=== PATIENT | female | born 1995 | race African-American/Black ===

== ENCOUNTER 2016-06-19 11:28 | Emergency (ER) | payer OTHER ==
[~2016-06-19] VITALS: Ht 172.7 cm; Wt 128.9 kg
[2016-06-19] MEDS ORDERED: METHOCARBAMOL 750 MG TABLET PO ONE (12:30)
[2016-06-19] MEDS ORDERED: OXYcodone/APAP 5/325MG TABLET PO ONE (12:30)
[2016-06-19] MEDS ORDERED: OXYcodone/APAP 5/325MG TABLET ONE ×2 (14:01→14:09)
[2016-06-19] MEDS ORDERED: METHOCARBAMOL 750 MG TABLET ONE (14:01)
[2016-06-19 14:30] VITALS: BP 145/78
== END 2016-06-19 14:32 | disposition home or self-care (01) ==
LOC: ED 11:54
DX: M54.42 Lumbago with sciatica, left side (principal)
CPT/HCPCS: 93971; 99284; J7512

== ENCOUNTER 2016-07-28 00:58 | Emergency (ER) | payer MEDICAID ==
[~2016-07-28] VITALS: Ht 172.7 cm; Wt 130.6 kg
[2016-07-28 01:02] VITALS: BP 138/83
[2016-07-28] MEDS ORDERED: KETOROLAC 30 MG/1 ML IM ONE (01:30)
[2016-07-28 01:42] LABS: BLOOD UREA NITROGEN 13 mg/dL (7-18)
[2016-07-28] MEDS ORDERED: KETOROLAC 30 MG/1 ML ONE (01:59)
[2016-07-28] MEDS ORDERED: METHOCARBAMOL 750 MG TABLET PO ONE (02:30)
[2016-07-28] MEDS ORDERED: METHOCARBAMOL 750 MG TABLET ONE ×2 (02:40→02:41)
== END 2016-07-28 02:54 | disposition home or self-care (01) ==
LOC: ED 01:18
DX: M54.42 Lumbago with sciatica, left side (principal)
CPT/HCPCS: 36415; 72110; 80048; 82040; 85025

== ENCOUNTER 2016-09-27 11:24 | Emergency (ER) | payer MEDICAID ==
[~2016-09-27] VITALS: Ht 172.7 cm; Wt 126.1 kg
[2016-09-27 12:27] LABS: ASPARTATE AMINO TRANSFERASE 17 U/L (15-37); BLOOD UREA NITROGEN 7 mg/dL (7-18)
[2016-09-27 13:04] VITALS: BP 107/65
== END 2016-09-27 13:40 | disposition home or self-care (01) ==
LOC: ED 11:47
DX: N83.202 Unspecified ovarian cyst, left side (principal)
CPT/HCPCS: 36415; 76830; 80053; 81003; 84702; 85025; 99285

== ENCOUNTER 2016-11-02 16:06 | Emergency (ER) | payer MEDICAID ==
[~2016-11-02] VITALS: Ht 172.7 cm; Wt 119.7 kg
[2016-11-02 16:07] VITALS: BP 129/85
[2016-11-02] MEDS ORDERED: ONDANSETRON 2MG/ML, 2ML IVPush ONE (17:00)
[2016-11-02] MEDS ORDERED: SODIUM CHLORIDE FLUSH 10ML SYR IVF ONE (17:00)
[2016-11-02] MEDS ORDERED: SODIUM CHLORIDE 0.9% 1,000ML IVBOLUS ONE (17:00)
[2016-11-02 17:17] LABS: PATH.CAST-FLAG NOT PRESENT; SPERM-FLAG NOT PRESENT; SRC-FLAG NOT PRESENT; XTAL-FLAG NOT PRESENT; YLC-FLAG NOT PRESENT
[2016-11-02 17:20] LABS: BLOOD UREA NITROGEN 14 mg/dL (7-18)
[2016-11-02 17:25] LABS: HEMATOCRIT 40.4 % (34.6-47.8); HEMOGLOBIN 13.5 g/dL (11.7-16.4); WHITE BLOOD COUNT 7.4 x10^3/uL (3.4-10)
== END 2016-11-02 18:56 | disposition left against medical advice (07) ==
LOC: ED 17:06
DX: N83.202 Unspecified ovarian cyst, left side (principal); G89.29 Other chronic pain; M54.5 Low back pain
CPT/HCPCS: 36415; 76830; 80048; 81001; 82040; 84703; 85025; 93005; 99285

== ENCOUNTER 2016-11-07 10:52 | Emergency (ER) | payer MEDICAID ==
[~2016-11-07] VITALS: Ht 172.7 cm; Wt 122.7 kg
[2016-11-07 11:08] VITALS: BP 136/88
== END 2016-11-07 12:37 | disposition home or self-care (01) ==
LOC: ED 12:10
DX: M26.621 Arthralgia of right temporomandibular joint (principal); K01.1 Impacted teeth
CPT/HCPCS: 70100; 99284

== ENCOUNTER 2016-11-20 09:29 | Emergency (ER) | payer MEDICAID ==
[~2016-11-20] VITALS: Ht 172.7 cm; Wt 121.7 kg
[2016-11-20 10:25] VITALS: BP 119/74
[2016-11-20] MEDS ORDERED: CEFTRIAXONE 250 MG IM ONE (11:30)
== END 2016-11-20 12:07 | disposition home or self-care (01) ==
LOC: ED 11:30
DX: Z20.2 Contact with and (suspected) exposure to infections with a predominantly sexual mode of transmission (principal); N89.8 Other specified noninflammatory disorders of vagina; Z88.1 Allergy status to other antibiotic agents
CPT/HCPCS: 87210; 87491; 87591; 87808; 99284

== ENCOUNTER 2016-12-26 09:51 | Emergency (ER) | payer MEDICAID ==
[~2016-12-26] VITALS: Ht 172.7 cm; Wt 120.7 kg
[2016-12-26 11:30] LABS: ASPARTATE AMINO TRANSFERASE 9 U/L (15-37); BLOOD UREA NITROGEN 5 mg/dL (7-18)
[2016-12-26 11:40] LABS: HEMATOCRIT 37.5 % (34.6-47.8); WHITE BLOOD COUNT 7.1 x10^3/uL (3.4-10)
[2016-12-26 13:33] VITALS: BP 115/64
== END 2016-12-26 13:35 | disposition home or self-care (01) ==
LOC: ED 10:23
DX: O26.891 Other specified pregnancy related conditions, first trimester (principal); O46.91 Antepartum hemorrhage, unspecified, first trimester; Z3A.01 Less than 8 weeks gestation of pregnancy
CPT/HCPCS: 36415; 76801; 80053; 81001; 84702; 85025; 87086; 87210; 87491; 87591; 87808; 99285

== ENCOUNTER 2017-03-13 03:18 | Emergency (ER) | payer MEDICAID ==
[~2017-03-13] VITALS: Ht 172.7 cm; Wt 117.4 kg
[2017-03-13 04:26] LABS: HCG UR SG 1.035 (1.003-1.030); MICROSCOPIC NOT IND
[2017-03-13 04:27] LABS: CULTURE INDICATED? NO
[2017-03-13] MEDS ORDERED: ONDANSETRON 2MG/ML, 2ML IVPush ONE (05:30)
[2017-03-13] MEDS ORDERED: SODIUM CHLORIDE 0.9% 1,000ML IVBOLUS ONE (05:30)
[2017-03-13] MEDS ORDERED: SODIUM CHLORIDE FLUSH 10ML SYR IVF ONE (05:30)
[2017-03-13 05:35] LABS: MEAN CORPUSCULAR HEMOGLOBIN 31.8 pg (27.0-34.8); MEAN CORPUSCULAR HGB CONC 34.5 g/dL (32.4-35.8); MEAN PLATELET VOLUME 9.4 fL (7.4-10.4); PLATELET COUNT 269 x10^3/uL (130-400); RED BLOOD COUNT 3.99 x10^6/uL (3.82-5.3); RED CELL DISTRIBUTION WIDTH 13.2 % (9.6-15.2)
[2017-03-13 05:43] LABS: ALANINE AMINOTRANSFERASE 11 U/L (12-78); ALBUMIN 3.1 g/dL (3.4-5.0); ANION GAP 7 mmol/L (5-15); CALCIUM 8.8 mg/dL (8.5-10.1); CHLORIDE 108 mmol/L (98-107); CREATININE 0.78 mg/dL (0.55-1.02)
[2017-03-13] MEDS ORDERED: ONDANSETRON ODT 4 MG ONE (05:49)
[2017-03-13 05:57] LABS: BASOPHILS # (AUTO) 0.06 x10^3/uL (0-0.1); BASOPHILS % (AUTO) 1 % (0-1); EOSINOPHILS # (AUTO) 0.08 x10^3/uL (0-0.4); EOSINOPHILS % (AUTO) 1 % (1-7); LYMPHOCYTES # (AUTO) 2.83 x10^3/uL (1-3.4); LYMPHOCYTES % (AUTO) 26 % (22-44); MD SCAN; MONOCYTES # (AUTO) 0.79 x10^3/uL (0.2-0.8); MONOCYTES % (AUTO) 7 % (2-9); NEUTROPHILS # (AUTO) 7.18 x10^3/uL (1.8-6.8); NEUTROPHILS % (AUTO) 66 % (42-75)
[2017-03-13 06:00] LABS: ALKALINE PHOSPHATASE 52 U/L (45-117); BILIRUBIN,TOTAL 0.2 mg/dL (0.2-1.0); TOTAL PROTEIN 7.3 g/dL (6.4-8.2)
[2017-03-13 07:05] VITALS: BP 137/70
== END 2017-03-13 07:40 | disposition home or self-care (01) ==
LOC: ED 05:44
DX: O26.892 Other specified pregnancy related conditions, second trimester (principal); R10.31 Right lower quadrant pain; Z3A.19 19 weeks gestation of pregnancy; Z59.0 Homelessness
CPT/HCPCS: 36415; 76815; 80053; 81003; 81025; 84702; 85025; 86901; 99285